=== PATIENT | female | born 1980 | race Caucasian/White ===

== ENCOUNTER → 2020-04-09 15:54 | Outpatient (BNVA) | payer OTHER, MEDICAID, SELFPAY | PROVIDERS: Visit Provider Obstetrics & Gynecology | DX: N93.9 Abnormal uterine and vaginal bleeding, unspecified (principal); R10.2 Pelvic and perineal pain; G89.29 Other chronic pain | CPT/HCPCS: 83001; 84146; 84443; 85007; 85025; 85027 ==

== ENCOUNTER → 2020-04-13 13:07 | Outpatient (BNVA) | payer OTHER, MEDICAID, SELFPAY | PROVIDERS: PCP Family Medicine; Visit Provider Obstetrics & Gynecology | DX: R10.2 Pelvic and perineal pain (principal) | CPT/HCPCS: 76830 ==

== ENCOUNTER → 2020-04-16 10:22 | Outpatient (BNVA) | payer OTHER, MEDICAID, SELFPAY | PROVIDERS: PCP Family Medicine; Visit Provider Obstetrics & Gynecology | DX: Z01.812 Encounter for preprocedural laboratory examination (principal) | CPT/HCPCS: 87635 ==

== ENCOUNTER 2020-04-20 08:11 | Outpatient (CLI) | payer OTHER, MEDICAID, SELFPAY ==
--- NOTE | 2020-04-20 08:15 | XR_ITS ---
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 Preliminary survey of the abdomen s hows a 3 mm calcification superimposing the right kidney. This apparently represents a nonobstructing renal stone. There is prompt uptake and excretion of contrast by both kidneys. The kidneys are smooth in contour a nd nondisplaced. The pyelocalyceal systems and ureters are patent. No sign of obstruction. The distal ureters are visualized and are patent into the bladder. The urinary bladder is smooth in contour. No intrinsic or extrinsic filling defects of the bladder. No sign of cystocele. Small post void residua l noted in the bladder. XR/XR IVP w KUB [id number] IMPRESSION: 1. 3 mm nonobstructing stone in the lower pole the right kidney. 2. Normal renal function with patency of the renal collecting structures and ur eters. 3. Small postvoid residual volume in the urinary bladder. Test results were discussed by phone with Dr. Moctezuma at 10:50 AM 04/20/2020
[2020-04-20 09:23] LABS: Basophils # 0.1 10^3/uL (0.0-0.1); Eosinophils # 0.3 10^3/uL (0.0-0.8); Eosinophils % 2.7 %; Hemoglobin 15.6 g/dL (11.5-15.3); Lymphocytes # 3.6 10^3/uL (0.8-4.8); Mean Corpuscular HGB Conc 32.5 g/dL (30.0-36.0); Mean Corpuscular Hemoglobin 28.8 pg (28.0-34.0); Mean Corpuscular Volume 88.7 fL (81-99); Mean Platelet Volume 10.2 fL (7.4-10.4); Monocytes # 0.9 10^3/uL (0.2-0.9); Monocytes % 6.8 %; Neutrophils # 7.48 10^3/uL (1.8-7.7); Nucleated Red Blood Cells % 0 %; Platelet Count 389 10^3/cmm (130-400); Red Blood Count 5.41 10^6/uL (4.1-5.3); Red Cell Distribution Width 13.1 % (12.1-15.1); White Blood Count 12.5 10^3/uL (4.0-10.0)
[2020-04-20 09:41] LABS: Alanine Aminotransferase 11 U/L (0-33); Albumin Level 4.5 g/dL (3.5-5.2); Alkaline Phosphatase 85 IU/L (35-105); Anion Gap 13.9 (5-19); Aspartate Amino Transferase 12 U/L (0-32); Blood Urea Nitrogen 8 mg/dL (6-20); Carbon Dioxide 21 mmol/L (22-29); Chloride 105 mmol/L (98-107); Globulin 2.6 g/dL (1.3-4.6); Glomerular Filtration Rate 110.2 mL/min (90-130); Glucose 95 mg/dL (65-115); Osmolality Calculated 280 mOsm/kg (285-295); Potassium 3.9 mmol/L (3.5-5.1); Sodium 136 mmol/L (136-145); Total Bilirubin 0.2 mg/dL (0.15-1.2); Total Protein 7.1 g/dL (6.6-8.7)
[2020-04-20] MEDS: iohexol 300 mg/mL 50 mL Btl IV ×2 (10:29)
== END 2020-04-20 08:12 | disposition home or self-care (01) ==
LOC: RAD 08:17
PROVIDERS: PCP Family Medicine; Visit Provider Obstetrics & Gynecology
DX: Q52.4 Other congenital malformations of vagina (principal); N93.9 Abnormal uterine and vaginal bleeding, unspecified; N20.0 Calculus of kidney
CPT/HCPCS: 36415; 74400; 80053; 85025

== ENCOUNTER 2020-04-21 08:06 | Day surgery (SDC) | payer OTHER, SELFPAY ==
[2020-04-20 10:41] VITALS: BMI 34.0
[2020-04-20 11:13] LABS: Add Urine Microscopic? YES; Bilirubin Urine Neg (Negative); Blood Urine 2+ (Negative); Glucose Urine UA Norm (Normal); Ketones Urine Negative (Negative); Leukocyte Esterase Urine Negative (Negative); Nitrate Urine Negative (Negative); Protein Urine Trace (Negative); Urine Appearance SL Hazy (CLEAR); Urine Color Yellow (Yellow); Urobilinogen Urine Norm (Negative)
[2020-04-20 11:38] LABS: Add Urine Culture? No; Bacteria Urine TRACE /hpf; RBC Urine RARE /hpf (0-2); Squamous Epithelial Cell Urine 15-25 /hpf (0-5)
--- NOTE | 2020-04-20 13:22 | ANES.PREANE2 ---
Pre-Anesthetic Assessment Pre-Anesthetic Assessment: Height/Weight: Height 1.55 m Weight 81.647 kg Preop Diagnosis: Vaginal Thao's duct the cyst Proposed Procedure: Operation Date: 04/21/20 09:30 Proposed Procedures p Incision And Drainage of thao cyst 88300 Q52.4(Not Applicable) - Christiano Moctezuma MD Was Beta Rach taken within 24 hours: N/A Social: Social History: Tobacco Exam: Pre-Anes Outpt Exam: alert, oriented x 3, clear to auscultation bilaterally and regular rate & rhythm Airway: Submandibular: WNL Cervical ROM: WNL MP: 2 Additional comments: Poor dentition Pulmonary: Pulmonary: COPD Metabolic: Metabolic: Morbid obesity Anesthetic Plan: ASA status: 2 Anesthesia: General Risk of > 500 ml blood loss (7ml/kg in children): No PFSH Anesthesia PFSH: Family History Father Heart disease Stroke Hypertension Grandmother Dementia maternal Stroke maternal Mother Uterine cancer Ovarian cancer Thyroid condition Hyperlipidemia Hypertension Breast cancer, Onset Age: 54 Colon cancer Denies family history of Diabetes Clotting disorder Anesthesia complication Bleeding disorder Social History (Updated 04/16/20 @ 08:56 by Lauren Dukes RN) Smoking and tobacco status: current every day smoker cigarettes Packs smoked per day: 1 Alcohol intake: current Alcohol intake frequency: holidays/special occasions only Alcohol type: hard liquor Female Reproductive History: Date of last menstrual period: 04/15/20 Data Anesthesia Other Labs: Laboratory Results - last 48 hr 04/20/20 10:55 Urine Color Yellow Urine Appearance Sl hazy Urine pH 7.0 Ur Specific [place] 1.000 L Urine Protein Trace Urine Glucose (UA) Norm Urine Ketones Negative Urine Blood 2+ H Urine Nitrate Negative Urine Bilirubin Neg Urine Urobilinogen Norm Ur Leukocyte Esterase Negative Urine RBC Rare Urine WBC None Ur Squamous Epith Cells 15-25 H Amorphous Sediment Not Reportable Urine Bacteria Trace Cardiac Studies: No Data to Display
[2020-04-20 15:19] LABS: OR HCG Qualitative Urine Negative (Negative)
[2020-04-21] VITALS (9 sets, daily range): BP systolic 80–124; BP diastolic 53–89; PULSE 63–93; RESP 15–20; TEMP 36.3–37.1; O2SAT 97–100
--- NOTE | 2020-04-21 09:01 | P.ANESUD_ITS ---
Pre-Anesthetic Update Pre-Anesthetic Assessment: Date of Surgery/Procedure: 04/21/20 Preop Krista gnosis: Vaginal Thao's duct the cyst Proposed Procedure: Operation Date: 04/21/20 09:30 Proposed Procedures p Incision And Drainage of thao cyst 37698 Q52.4(Not Applicable) - Christiano Moctezuma MD Any changes to Pre-Anesthetic Assessment?: No Last Intake: Intake Last Liquid Date 04/21/20 Last Liquid Time 06:00 Last Solid Date 04/20/20 Last Solid Time 21:00 Labs Last 48hrs: Laboratory Results - last 48 hr 04/20/20 04/20/20 10:55 10:55 Urine Color Yellow Urine Appearance Sl hazy Urine pH 7.0 Ur Specific Gravit y 1.000 L Urine Protein Trace Urine Glucose (UA) Norm Urine Ketones Negative Urine Blood 2+ H Urine Nitrate Negative Urine Bilirubin Neg Urine Urobilinogen Norm Ur Leukocyte Celi ase Negative Urine RBC Rare Urine WBC None Ur Squamous Epith Cells 15-25 H Amorphous Sediment Not Reportable Urine Bacteria Trace Urine HCG, Qual Negative Vitals: Temperature 97.3 F L 04/21/20 08:42 Pulse Rate 93 04/21/20 08:42 Pulse Rhythm 04/21/20 08:31 Pulse Strength 3+ Normal 04/21/20 08:31 Respiratory Rate 18 04/21/20 08:42 Blood Pressure 124/89 04/21/20 08:42 Blood Pressure Lin n 100 04/21/20 08:42 Pulse Oximetry 97 04/21/20 08:42 Oxygen Delivery Me thod 04/21/20 08:31 Exam: Pre-Anes Outpt Exam: alert, oriented x 3, clear to auscultation bilaterally and regular rate & rhythm Cardiac Studies: No Data to Display
[2020-04-21 09:02] LABS: OR HCG Qualitative Urine Negative (Negative)
[2020-04-21] MEDS: sodium chloride 0.9% 500 ML IV (09:05)
[2020-04-21] MEDS: scopolamine 1.5 Patch 1 PATCH TRANSDERMA (09:06)
--- NOTE | 2020-04-21 09:24 | W.PM.OPSUD ---
Surgery/Procedure H&P Update DATE OF PROCEDURE: April 21, 2020 DATE H&P PERFORMED: 04/16/20 H&P UPDATE INFORMATION: I have reviewed H&P completed within last 30 days, I have examined patient prior to procedure and No changes to prior documentation PREOP DIAGNOSIS: Vaginal Thao's duct the cyst PLANNED PROCEDURE: Operation Date: 04/21/20 09:30 Proposed Procedures p Incision And Drainage of thao cyst 37656 Q52.4(Not Applicable) - Christiano Moctezuma MD
[2020-04-21] MEDS: sodium chloride 0.9% 1,000 ML 30 ML IV (09:32)
--- NOTE | 2020-04-21 10:22 | PM.OP ---
Operative Report Date of procedure: April 21, 2020 Pre-op Diagnosis: Vaginal Thao's duct the cyst Post-op diagnosis: same Post-op Findings: Enlarged Thao's duct yst Procedure Done: Thao's duct cyst incision and drainage with marsupialization Surgeon: Christiano Moctezuma MD Anesthesia: MAC Estimated blood loss (mL): 1 IV fluids (mL): 300 Complications: None Condition: stable Disposition: PACU Procedure: After informed consent, the patient was taken to the operating room where general anesthesia was administered. The patient was placed in dorsal lithothomy position. She was examined under anesthesia and found to have a normal uterus with normal adnexa. After a bimanual examination to determine the extent of the right Thao's duct cyst. She was then prep and draped in normal sterile fashion. The labia were retracted with the Lone Start retractor and the introitus of the Vagina was exposed. An incision was made over the mucosa of the vagina at its junction with the introitus down to the wall of the gland on the right side. The wall of the gland was incised and the content of the cyst was evacuated. A culture was taken. The benites of the cyst were grasped with Allis clamps. The wall of the cyst were sutured with interrupted 3-0 Vicril to the skin of introitus laterally and to the vaginal of mucosa medially. The patient tolerated the procedure well and instruments and laps count was correct times two.
--- NOTE | 2020-04-21 12:21 | ANE.PACU2 ---
Inpatient post-anesthesia follow up: Airway intact: Yes Vital signs: Temperature 97.8 F Pulse Rate 78 Respiratory Rate 18 Blood Pressure 124/79 Pulse Oximetry 98 Oxygen Delivery Me thod Room Air Oxygen Flow Rate 6 Fraction of Inspir ed Oxygen Hydration adequate: Yes Nausea and vomiting: No Pain level: 2 Mental status: Baseline
== END 2020-04-21 11:45 | disposition home or self-care (01) ==
PROVIDERS: Anesthesiology; PCP Family Medicine; Visit Provider Obstetrics & Gynecology
PROC: (CPT 57023; principal; 2020-04-21 09:30)
DX: Q52.4 Other congenital malformations of vagina (principal); J44.9 Chronic obstructive pulmonary disease, unspecified; E66.01 Morbid (severe) obesity due to excess calories; Z68.34 Body mass index [BMI] 34.0-34.9, adult; F17.210 Nicotine dependence, cigarettes, uncomplicated
CPT/HCPCS: 57023; 12345; 36415; 81001; 81025; 84703; 86850; 86900; 87070; 87075; J0690; J1100; J2405; J2704; J3010; J7030; J7040

== ENCOUNTER → 2020-06-21 15:20 | Outpatient (BNVA) | payer OTHER, MEDICAID, SELFPAY | PROVIDERS: PCP Family Medicine; Visit Provider Obstetrics & Gynecology | DX: N93.9 Abnormal uterine and vaginal bleeding, unspecified (principal); R10.2 Pelvic and perineal pain; G89.29 Other chronic pain | CPT/HCPCS: 81025; 83001; 84146; 84443; 85025 ==

== ENCOUNTER → 2020-07-19 14:35 | Outpatient (BNVA) | payer OTHER, MEDICAID, SELFPAY | PROVIDERS: PCP Family Medicine; Visit Provider Obstetrics & Gynecology | DX: N92.6 Irregular menstruation, unspecified (principal); N91.1 Secondary amenorrhea | CPT/HCPCS: 84702 ==

== ENCOUNTER → 2020-08-09 14:25 | Outpatient (BNVA) | payer OTHER, MEDICAID, SELFPAY | PROVIDERS: PCP Family Medicine; Visit Provider Obstetrics & Gynecology | DX: N91.1 Secondary amenorrhea (principal); R10.2 Pelvic and perineal pain; G89.29 Other chronic pain; D25.1 Intramural leiomyoma of uterus | CPT/HCPCS: 83001 ==

== ENCOUNTER → 2020-09-30 14:25 | Outpatient (BNVA) | payer OTHER, MEDICAID, SELFPAY | PROVIDERS: PCP Family Medicine; Visit Provider Obstetrics & Gynecology | DX: G89.29 Other chronic pain (principal); N93.9 Abnormal uterine and vaginal bleeding, unspecified; R10.2 Pelvic and perineal pain | CPT/HCPCS: 87635 ==

== ENCOUNTER 2020-10-06 07:47 | Day surgery (SDC) | payer OTHER, MEDICAID, SELFPAY ==
[2020-10-04 10:54] VITALS: BMI 34.0
--- NOTE | 2020-10-04 12:45 | ANES.PREANE2 ---
Pre-Anesthetic Assessment Pre-Anesthetic Assessment: Height/Weight: Height 1.55 m Weight 81.647 kg Preop Diagnosis: Vaginal Thao's duct the cyst Proposed Procedure: Operation Date: 10/06/20 13:15 Proposed Procedures p Diagnostic Laparoscopy 50333 R10.2 N93.9(Not Applicable) - Christiano Moctezuma MD Was Beta Rach taken within 24 hours: N/A Was Clonidine taken within 24 hours: N/A Social: Social History: Tobacco and No alcohol Exam: Pre-Anes Outpt Exam: alert, oriented x 3 and regular rate & rhythm Airway: Submandibular: WNL Cervical ROM: WNL MP: 2 Dentition: Chipped Additional comments: poor dentition Metabolic: Metabolic: Morbid obesity Neuropsych: Comments: Chronic pelvic pain Anesthetic Plan: ASA status: 2 Anesthesia: General Risk of > 500 ml blood loss (7ml/kg in children): No PFSH Anesthesia PFSH: Medical History Aftercare following surgery of the genitourinary system Family History Father Heart disease Stroke Hypertension Grandmother Dementia maternal Stroke maternal Mother Uterine cancer Ovarian cancer Thyroid condition Hyperlipidemia Hypertension Breast cancer, Onset Age: 56 Colon cancer Denies family history of Diabetes Clotting disorder Anesthesia complication Bleeding disorder Social History Smoking and tobacco status: current every day smoker cigarettes Packs smoked per day: 0.5 Alcohol intake: current Alcohol intake frequency: holidays/special occasions only Alcohol type: hard liquor Other details last substance use: has tried to use marijuana in the past but it makes her sick Female Reproductive History: Date of last menstrual period: 04/15/20 Data Anesthesia Cardiac Studies: No Data to Display
[2020-10-06] VITALS (10 sets, daily range): BP systolic 106–118; BP diastolic 62–83; PULSE 61–81; RESP 11–18; TEMP 36.2–36.7; O2SAT 96–97
[2020-10-06] MEDS: scopolamine 1.5 Patch 1 PATCH TRANSDERMA (08:25)
[2020-10-06 08:31] LABS: OR HCG Qualitative Urine Negative (Negative)
[2020-10-06] MEDS: sodium chloride 0.9% 1,000 ML 30 ML IV (08:49)
--- NOTE | 2020-10-06 09:07 | P.ANESUD_ITS ---
Pre-Anesthetic Update Pre-Anesthetic Assessment: Date of Surgery/Procedure: 10/06/20 Preop Krista gnosis: Chronic pelvic pain, uterine fibroids, abnormal uterine bleeding Proposed Procedure: Operation Date: 10/06/20 09:20 Proposed Procedures p Diagnostic Laparoscopy 75733 R10.2 N93.9(Not Applicable) - Christiano Moctezuma MD Any changes to Pre-Anesthetic Assessment?: No Last Intake: Intake Last Liquid Date 10/05/20 Last Liquid Time 21:30 Last Solid Date 10/05/20 Last Solid Time 21:30 Labs Last 48hrs: Laboratory Results - last 48 hr 10/06/20 07:18 Urine HCG, Qual Negative Vitals: Temperature 98.1 F 10/06/20 08:03 Temperature Source Temporal Artery S can 10/06/20 08:03 Pulse Rate 81 10/06/20 08:03 Respiratory Rate 18 10/06/20 08:03 Blood Pressure 118/83 10/06/20 08:03 Blood Pressure Lin n 94 10/06/20 08:03 Pulse Oximetry 97 10/06/20 08:03 Oxygen Delivery Me thod 10/06/20 08:06 Exam: Pre-Anes Outpt Exam: alert, oriented x 3, clear to auscultation bilaterally and regular rate & rhythm Cardiac Studies: No Data to Display
[2020-10-06] MEDS: midazolam 1 mg/mL INJ 2 mL 2 MG IVP (09:16)
[2020-10-06 09:40] LABS: Basophils # 0.1 10^3/uL (0.0-0.1); Basophils % 0.8 %; Eosinophils # 0.3 10^3/uL (0.0-0.8); Lymphocytes # 3.3 10^3/uL (0.8-4.8); Lymphocytes % 25.3 %; Mean Corpuscular HGB Conc 32.7 g/dL (30.0-36.0); Mean Corpuscular Volume 88.8 fL (81-99); Mean Platelet Volume 10.4 fL (7.4-10.4); Monocytes # 1.1 10^3/uL (0.2-0.9); Neutrophils # 8.36 10^3/uL (1.8-7.7); Neutrophils % 63.3 %; Nucleated Red Blood Cells % 0 %; Platelet Count 332 10^3/cmm (130-400); Red Blood Count 5.52 10^6/uL (4.1-5.3); Red Cell Distribution Width 13.5 % (12.1-15.1); White Blood Count 13.2 10^3/uL (4.0-10.0)
--- NOTE | 2020-10-06 09:44 | W.PM.OPSUD ---
Surgery/Procedure H&P Update DATE OF PROCEDURE: October 06, 2020 DATE H&P PERFORMED: 10/04/20 H&P UPDATE INFORMATION: I have reviewed H&P completed within last 30 days, I have examined patient prior to procedure and No changes to prior documentation PREOP DIAGNOSIS: Chronic pelvic pain, uterine fibroids, abnormal uterine bleeding PLANNED PROCEDURE: Operation Date: 10/06/20 09:20 Proposed Procedures p Diagnostic Laparoscopy 25340 R10.2 N93.9(Not Applicable) - Christiano Moctezuma MD
[2020-10-06 10:00] LABS: Anion Gap 14.7 (5-19); Blood Urea Nitrogen 8 mg/dL (6-20); Calcium 8.7 mg/dL (8.5-10.5); Carbon Dioxide 23 mmol/L (22-29); Chloride 100 mmol/L (98-107); Glomerular Filtration Rate 109.6 mL/min (90-130); Glucose 90 mg/dL (65-115); Osmolality Calculated 276 mOsm/kg (285-295); Potassium 3.7 mmol/L (3.5-5.1); Sodium 134 mmol/L (136-145)
--- NOTE | 2020-10-06 10:42 | P.OP_ITS ---
Operative Report Date of procedure: October 06, 2020 Pre-op Diagnosis: Chronic pelvic pain, uterine fibroids, abnormal uterine bleeding Post-op diagnosis: same Post-op Findings: Enlarged irregular uterus. Mild endometriosis Left follicular cyst Procedure Done: Diagnostic laparoscopy Specimens removed/disposition: None Pathology: none sent Surgeon: Christiano Moctezmua MD Anesthesia: General Estimated blood loss (mL): 5 IV fluids (mL): 800 Urine output (mL): 50 Complications: None Condition: stable Disposition: PACU Brief History: Mrs. Deutsch 40-year-old female with a history of chronic pelvic pain abnormal uterine bleeding and uterine fibroids Procedure: After informed consent, the patient was taken to the operating room where general anesthesia was administered. The patient was examined under anesthesia and found to have a normal uterus with normal adnexa. She was placed in the dorsal lithotomy position and prepped and draped in sterile fashion. Pre- Procedure Time-Out verifying the correct patient identity, correct procedure verified with consent, correct site and side, correct patient position, availability of correct implants and any special equipment or requirements was performed and acknowledge by the OR team. A weighted speculum was placed in the vagina, and the anterior lip of cervix was grasped with the single toothed tenaculum. A uterine manipulator was advanced into the endocervical. Tenaculum was removed after uterine manipulator was secured. The speculum was removed from the vagina. An intraumbilical incision was made with a scalpel. While tenting up on the abdomen, a Verres needle with sleeve was admitted into the intra-abdominal cavity. A saline drop test was performed and noted to be within normal limits. Pneumoperitoneum was attained with 4 liters of carbon dioxide. The Verres needle was removed. A 5 mm trocar and sleeve were admitted into the abdomen and laparoscopic confirmation of location was achieved, A second incision was made 3 cm above the symphysis pubis, and a 5 mm trocar and sleeve were admitted into the abdomen under direct, laparoscopic visualization without complication. A 5 mm blunt probe was advanced through the second trocar sleeve, and light manipulation of ovaries and uterus to assess the posterior aspects was performed. A survey revealed normal abdominal anatomy but pelvic survey shows an enlarged irregular uterus, left and right adnexa showing a status post partial salpingectomy. A left ovarian follicle cyst. Endometriosis lesions noted post deviously left pelvic wall over the left ureter trajectory. Carbon dioxide was allowed to escape from the abdomen. The instruments were removed, and skin cover with a bandage. The instruments were removed from the vagina, and excellent hemostasis was noted. The patient tolerated the procedure well, and sponge, lap and needle count were correct times two. The patient taken to the recovery room in good condition.
[2020-10-06] MEDS: HYDROcodone-acetaminophen 5-325 mg Tablet 1 TAB PO (11:41)
--- NOTE | 2020-10-06 17:12 | ANE.PACU2 ---
Inpatient post-anesthesia follow up: Airway intact: Yes Vital signs: Temperature 97.8 F Pulse Rate 70 Respiratory Rate 18 Blood Pressure 108/74 Pulse Oximetry 97 Oxygen Delivery Me thod Room Air Oxygen Flow Rate Fraction of Inspir ed Oxygen Hydration adequate: Yes Nausea and vomiting: No Pain level: 1 Mental status: Baseline
== END 2020-10-06 12:21 | disposition home or self-care (01) ==
PROVIDERS: PCP Family Medicine; Visit Provider Obstetrics & Gynecology
PROC: (CPT 49320; principal; 2020-10-06 09:10)
DX: R10.2 Pelvic and perineal pain (principal); G89.29 Other chronic pain; D25.9 Leiomyoma of uterus, unspecified; N93.9 Abnormal uterine and vaginal bleeding, unspecified; Z98.890 Other specified postprocedural states; N83.202 Unspecified ovarian cyst, left side; N80.3 Endometriosis of pelvic peritoneum; E66.01 Morbid (severe) obesity due to excess calories; Z68.34 Body mass index [BMI] 34.0-34.9, adult; Z82.49 Family history of ischemic heart disease and other diseases of the circulatory system; F17.210 Nicotine dependence, cigarettes, uncomplicated
CPT/HCPCS: 49320; 36415; 80048; 81025; 84703; 85025; 86850; 86900; J0690; J2250; J2550; J2704; J2710; J3010; J3490; J7030

== ENCOUNTER → 2020-10-25 12:06 | Outpatient (BNVA) | payer OTHER, MEDICAID, SELFPAY | PROVIDERS: PCP Family Medicine; Visit Provider Obstetrics & Gynecology | DX: R35.0 Frequency of micturition (principal); N80.9 Endometriosis, unspecified; R10.2 Pelvic and perineal pain; G89.18 Other acute postprocedural pain; D25.1 Intramural leiomyoma of uterus; G89.29 Other chronic pain | CPT/HCPCS: 81000; 87086 ==

== ENCOUNTER → 2020-11-12 14:39 | Outpatient (BNVA) | payer OTHER, MEDICAID, SELFPAY | PROVIDERS: PCP Family Medicine; Visit Provider Obstetrics & Gynecology | DX: Z20.822 Contact with and (suspected) exposure to COVID-19 (principal); D25.1 Intramural leiomyoma of uterus | CPT/HCPCS: 87635 ==

== ENCOUNTER 2020-11-17 09:46 | Observation (INO) | payer OTHER, MEDICAID, SELFPAY ==
[2020-11-15 10:16] VITALS: BMI 34.0
--- NOTE | 2020-11-15 10:49 | ANES.PREANE2 ---
Pre-Anesthetic Assessment Pre-Anesthetic Assessment: Height/Weight: Height 1.55 m Weight 81.647 kg Preop Diagnosis: Chronic pelvic pain, uterine fibroids, abnormal uterine bleeding Proposed Procedure: Operation Date: 11/17/20 08:05 Proposed Procedures p Total Vaginal Hysterectomy 45973 D25.9 N80.9 R10.2 N93.9(Not Applicable) - Christiano Moctezuma MD Was Beta Rach taken within 24 hours: N/A Was Clonidine taken within 24 hours: N/A Social: Social History: No alcohol and No tobacco Exam: Pre-Anes Outpt Exam: alert, oriented x 3, clear to auscultation bilaterally and regular rate & rhythm Airway: Submandibular: WNL Cervical ROM: WNL MP: 2 Dentition: Chipped Pulmonary: Pulmonary: COPD CV/HEM: CV/HEM: Anemia Metabolic: Metabolic: Morbid obesity Anesthetic Plan: ASA status: 2 Anesthesia: General Risk of > 500 ml blood loss (7ml/kg in children): No PFSH Anesthesia PFSH: Medical History Aftercare following surgery of the genitourinary system Family History Father Heart disease Stroke Hypertension Grandmother Dementia maternal Stroke maternal Mother Uterine cancer Ovarian cancer Thyroid condition Hyperlipidemia Hypertension Breast cancer, Onset Age: 56 Colon cancer Denies family history of Diabetes Clotting disorder Anesthesia complication Bleeding disorder Social History (Updated 10/25/20 @ 11:11 by Jenae Crenshaw) Smoking and tobacco status: current every day smoker cigarettes Packs smoked per day: 0.5 Alcohol intake: current Alcohol intake frequency: holidays/special occasions only Alcohol type: hard liquor Other details last substance use: has tried to use marijuana in the past but it makes her sick Female Reproductive History: Date of last menstrual period: 04/15/20 Data Anesthesia CBC & Chem 7: 11/15/20 10:30 11/15/20 10:30 Cardiac Studies: No Data to Display
[2020-11-15 11:00] LABS: Basophils # 0.1 10^3/uL (0.0-0.1); Basophils % 0.8 %; Eosinophils # 0.3 10^3/uL (0.0-0.8); Eosinophils % 2.1 %; Hematocrit 47.7 % (37.0-47.0); Hemoglobin 15.5 g/dL (11.5-15.3); Lymphocytes # 3.8 10^3/uL (0.8-4.8); Lymphocytes % 29.8 %; Mean Corpuscular HGB Conc 32.5 g/dL (30.0-36.0); Mean Corpuscular Hemoglobin 28.9 pg (28.0-34.0); Mean Platelet Volume 10.7 fL (7.4-10.4); Monocytes # 0.9 10^3/uL (0.2-0.9); Monocytes % 7.3 %; Neutrophils # 7.52 10^3/uL (1.8-7.7); Neutrophils % 59.3 %; Nucleated Red Blood Cells % 0 %; Platelet Count 368 10^3/cmm (130-400); Red Blood Count 5.36 10^6/uL (4.1-5.3); Red Cell Distribution Width 13.8 % (12.1-15.1); White Blood Count 12.7 10^3/uL (4.0-10.0)
[2020-11-15 11:18] LABS: Alanine Aminotransferase 11 U/L (0-33); Albumin Level 4.2 g/dL (3.5-5.2); Alkaline Phosphatase 82 IU/L (35-105); Anion Gap 15.1 (5-19); Aspartate Amino Transferase 15 U/L (0-32); Blood Urea Nitrogen 5 mg/dL (6-20); Calcium 8.3 mg/dL (8.5-10.5); Carbon Dioxide 22 mmol/L (22-29); Chloride 103 mmol/L (98-107); Globulin 3.1 g/dL (1.3-4.6); Glomerular Filtration Rate 109.6 mL/min (90-130); Glucose 85 mg/dL (65-115); Osmolality Calculated 279 mOsm/kg (285-295); Potassium 4.1 mmol/L (3.5-5.1); Sodium 136 mmol/L (136-145); Total Bilirubin 0.2 mg/dL (0.15-1.2); Total Protein 7.3 g/dL (6.6-8.7)
[2020-11-15 13:14] LABS: Urine Appearance SL Hazy (CLEAR); Urine Color Yellow (Yellow)
[2020-11-15 13:15] LABS: Add Urine Microscopic? YES; Bilirubin Urine Neg (Negative); Blood Urine Neg (Negative); Glucose Urine UA Norm (Normal); Ketones Urine Negative (Negative); Leukocyte Esterase Urine Trace (Negative); Nitrate Urine Negative (Negative); Protein Urine Neg (Negative); Specific Gravity, Urine 1.005 (1.005-1.030); Urobilinogen Urine Norm (Negative); pH Urine 8 (5-7)
[2020-11-15 13:33] LABS: Add Urine Culture? No; Bacteria Urine TRACE /hpf; Squamous Epithelial Cell Urine 0-4 /hpf (0-5); WBC Urine 0-4 /hpf (0-5)
[2020-11-17] VITALS (23 sets, daily range): BP systolic 97–140; BP diastolic 56–84; PULSE 54–92; RESP 16–20; TEMP 36.5–36.9; O2SAT 95–100; BMI 34.0
[2020-11-17] MEDS: scopolamine 1.5 Patch 1 PATCH TRANSDERMA (07:36)
[2020-11-17] MEDS: sodium chloride 0.9% 500 ML IV (07:36)
[2020-11-17] MEDS: sodium chloride 0.9% 1,000 ML 30 ML IV (07:36)
--- NOTE | 2020-11-17 08:12 | W.PM.OPSUD ---
Surgery/Procedure H&P Update DATE OF PROCEDURE: November 17, 2020 DATE H&P PERFORMED: 10/04/20 H&P UPDATE INFORMATION: I have reviewed H&P completed within last 30 days, I have examined patient prior to procedure and No changes to prior documentation PREOP DIAGNOSIS: Chronic pelvic pain, uterine fibroids, abnormal uterine bleeding PLANNED PROCEDURE: Operation Date: 11/17/20 08:20 Proposed Procedures p Total Vaginal Hysterectomy 76296 D25.9 N80.9 R10.2 N93.9(Not Applicable) - Christiano Moctezuma MD
[2020-11-17 08:30] LABS: OR HCG Qualitative Urine Negative (Negative)
[2020-11-17] MEDS: ceFOXitin 2,000 MG in sodium chloride 0.9% (plus) 50 ML 100 MG IV (08:32)
--- NOTE | 2020-11-17 09:17 | P.ANESUD_ITS ---
Pre-Anesthetic Update Pre-Anesthetic Assessment: Date of Surgery/Procedure: 11/17/20 Preop Krista gnosis: Chronic pelvic pain, uterine fibroids, abnormal uterine bleeding Proposed Procedure: Operation Date: 11/17/20 08:20 Proposed Procedures p Total Vaginal Hysterectomy 36530 D25.9 N80.9 R10.2 N93.9(Not Applicable) - Christiano Moctezuma MD Any changes to Pre-Anesthetic Assessment?: No Last Intake: Intake Last Liquid Date 11/16/20 Last Liquid Time 23:00 Last Solid Date 11/16/20 Last Solid Time 20:00 Labs Last 48hrs: Laboratory Results - last 48 hr 11/15/20 11/15/20 11/15/20 10:30 10:30 10:30 WBC 12.7 H RBC 5.36 H Hgb 15.5 H Hct 47.7 H MCV 89.0 MCH 28.9 MCHC 32.5 RDW 13.8 Plt Count 368 MPV 10.7 H Neut % (Auto) 59.3 Lymph % (Auto) 29.8 [place] % (Auto) 7.3 Eos % (Auto) 2.1 Baso % (Auto) 0.8 Neut # (Auto) 7.52 Lymph # (Auto) 3.8 [place] # (Auto) 0.9 Eos # (Auto) 0.3 Baso # (Auto) 0.1 Nucleated RBC % (a uto) 0 Nucleated RBCs # 0.0 Sodium 136 Potassium 4.1 Chloride 103 Carbon Dioxide 22 Anion Gap 15.1 BUN 5 L Creatinine 0.6 GFR Calculation 109.6 Glucose 85 Calculated Osmolal ity 279 L Calcium 8.3 L Total Bilirubin 0.2 AST 15 ALT 11 Alkaline Phosphata se 82 Total Protein 7.3 Albumin 4.2 Globulin 3.1 Urine Color Yellow Urine Appearance Sl hazy Urine pH 8 H Ur Specific Gravit y 1.005 Urine Protein Neg Urine Glucose (UA) Norm Urine Ketones Negative Urine Blood Neg Urine Nitrate Negative Urine Bilirubin Neg Urine Urobilinogen Norm Ur Leukocyte Celi ase Trace H Urine RBC None Urine WBC 0-4 H Ur Squamous Epith Cells 0-4 H Amorphous Sediment Not Reportable Urine Bacteria Trace Urine HCG, Qual Blood Type Rho(D) Type Antibody Screen 11/15/20 11/17/20 10:30 08:29 WBC RBC Hgb Hct MCV MCH MCHC RDW Plt Count MPV Neut % (Auto) Lymph % (Auto) [place] % (Auto) Eos % (Auto) Baso % (Auto) Neut # (Auto) Lymph # (Auto) [place] # (Auto) Eos # (Auto) Baso # (Auto) Nucleated RBC % (a uto) Nucleated RBCs # Sodium Potassium Chloride Carbon Dioxide Anion Gap BUN Creatinine GFR Calculation Glucose Calculated Osmolal ity Calcium Total Bilirubin AST ALT Alkaline Phosphata se Total Protein Albumin Globulin Urine Color Urine Appearance Urine pH Ur Specific Gravit y Urine Protein Urine Glucose (UA) Urine Ketones Urine Blood Urine Nitrate Urine Bilirubin Urine Urobilinogen Ur Leukocyte Celi ase Urine RBC Urine WBC Ur Squamous Epith Cells Amorphous Sediment Urine Bacteria Urine HCG, Qual Negative Blood Type A Positive Rho(D) Type Positive Antibody Screen Negative Vitals: Temperature 97.9 F 11/17/20 07:14 Temperature Source Temporal Artery S can 11/17/20 07:14 Pulse Rate 92 11/17/20 07:14 Respiratory Rate 18 11/17/20 07:14 Blood Pressure 140/81 11/17/20 07:14 Blood Pressure Lin n 100 11/17/20 07:14 Pulse Oximetry 96 11/17/20 07:14 Oxygen Delivery Me thod 11/17/20 07:14 Exam: Pre-Anes Outpt Exam: alert, oriented x 3, clear to auscultation bilaterally and regular rate & rhythm Cardiac Studies: No Data to Display
--- NOTE | 2020-11-17 09:48 | P.OP_ITS ---
Operative Report Date of procedure: November 17, 2020 Pre-op Diagnosis: Chronic pelvic pain, uterine fibroids, abnormal uterine bleeding Post-op diagnosis: same Procedure Done: Total vaginal hysterectomy Specimens removed/disposition: Uterus Pathology: Uterus Surgeon: Christiano Moctezuma MD Anesthesia: General Estimated blood loss (mL): 50 IV fluids (mL): 500 Urine output (mL): 200 Condition: stable Disposition: PACU Procedure: After informed consent and risks, benefits, indications and alternatives reviewed with the patient was taken to the operating room. The patient was placed in dorsal lithotomy position prepped, and draped in the usual sterile fashion. The pre-procedure timeout verifying the correct patient, procedure, site and side, could not requirements was performed and acknowledge by the OR team. A Maguire catheter was placed. A Bookwalter vaginal retractor was placed into the vagina in usual manner visualize the cervix. Cervix was grasped with a single tooth tenaculum and circumferentially infiltrated with 1% Xylocaine with epinephrine. Then cervix was circumferentially incised with bovie and the bladder was dissected off the pubovesical cervical fascia anteriorly with a sponge stick and Metzenbaum scissors. The anterior peritoneal reflection was identified and the anterior cul-de-sac was entered sharply with Metzenbaum scissors. The same procedure was performed posteriorly and a posterior colpotomy was made through the posterior cul-de-sac space without difficulty and the posterior blade of the Bookwalter vaginal retractor was advanced posteriorly into the cul-de-sac. At this time, the left and right uterosacral ligaments were isolated and ligated with 0 Vicryl. The Enseal device was placed over the uterosacral ligaments on either side and was then used in a serial fashion up through the cardinal ligaments bilaterally cross-clamped, cut, and sealed with the Enseal device. Finally, the uterine arteries were cross-clamped, cut, sealed and ligated with the Enseal device. Hemostasis was assured. The broad ligaments were then serially clamped, sealed and cut with the Enseal device on both sides. Excellent hemostasis was visualized. Both cornua were clamped, sealed and cut with the Enseal device. Then the pedicles were then suture ligated with excellent hemostasis. The uterus was excised and submitted for pathologic evaluation. No other abnormalities were noted in the pelvic cavity. The peritoneum was then closed in a pursestring fashion with 0 Vicryl suture. The patient was given indigo carmine IV. the vaginal cuff angles were closed with [id number] #0 Vicryl suture on both sides and transfixed with the ipsilateral cardinal and uterosac ral ligaments. The remainder of the vaginal cuff was closed with #0 Vicryl in a running locked fashion. At this time, instruments were removed from the vagina at hemostasis assured. The Maguire catheter noted to be yielding clear blue urine. The patient was taken out of dorsal lithotomy position and awakened from the general anesthesia. The patient tolerated the procedure well and was taken to the PACU recovery room in a stable condition. Sponge, lap, needle and instruments counts were correct x3.
[2020-11-17] MEDS: fentaNYL 50 mcg/mL INJ 2mL IVP ×2 (09:57→10:05)
[2020-11-17] MEDS: HYDROcodone-acetaminophen 5-325 mg Tablet PO ×3 (11:01→23:09)
[2020-11-17] MEDS: ketorolac 30 mg/mL INJ IVP ×3 (11:01→23:09)
[2020-11-17] MEDS: TRAMadol 50 mg Tablet PO ×2 (14:58→21:24)
[2020-11-17] MEDS: nicotine 21 mg Patch 1 PATCH TRANSDERMA (14:59)
--- NOTE | 2020-11-17 16:41 | PC.NURSE ---
Patient ambulated 1 lap up and back to room. Patient tolerated without any weakness, dizziness or lightheadedness.
[2020-11-17] MEDS: docusate sodium 100 mg Capsule PO (17:24)
--- NOTE | 2020-11-17 17:48 | ANE.PACU2 ---
Inpatient post-anesthesia follow up: Airway intact: Yes Vital signs: Temperature 98.4 F Pulse Rate 67 Respiratory Rate 17 Blood Pressure 105/67 Pulse Oximetry 96 Oxygen Delivery Me thod Room Air Oxygen Flow Rate 8 Fraction of Inspir ed Oxygen Hydration adequate: Yes Nausea and vomiting: No Pain level: 2 Mental status: Baseline
[2020-11-17] MEDS: dextrose 5%-lactated ringers 1,000 ML 125 ML IV (18:20)
[2020-11-17] MEDS: morphine 4 mg/mL SDV 1 mL 1 MG IVP (20:57)
[2020-11-17] MEDS: LORazepam 2 mg/mL INJ 1 mL 1 MG IVP (20:57)
[2020-11-18] MEDS: dextrose 5%-lactated ringers 1,000 ML 125 ML IV (01:44)
[2020-11-18 04:03] VITALS: BP 109/55; PULSE 60; RESP 17; TEMP 36.7; O2SAT 99
[2020-11-18] MEDS: TRAMadol 50 mg Tablet PO ×2 (04:03→10:03)
[2020-11-18] MEDS: HYDROcodone-acetaminophen 5-325 mg Tablet PO (05:10)
[2020-11-18] MEDS: ketorolac 30 mg/mL INJ IVP (05:10)
[2020-11-18 05:49] LABS: Hematocrit 39.1 % (37.0-47.0); Hemoglobin 12.7 g/dL (11.5-15.3); Mean Corpuscular HGB Conc 32.5 g/dL (30.0-36.0); Mean Corpuscular Hemoglobin 29.2 pg (28.0-34.0); Mean Corpuscular Volume 89.9 fl (81-99); Mean Platelet Volume 10.7 fL (7.4-10.4); Platelet Count 295 10^3/cmm (130-400); Red Blood Count 4.35 10^6/uL (4.1-5.3); Red Cell Distribution Width 13.8 % (12.1-15.1); White Blood Count 21.6 10^3/uL (4.0-10.0)
--- NOTE | 2020-11-18 09:02 | P.DS_ITS ---
Discharge Providers PUBLIC RELATIONS SALES MARKETING Date of Admission: 11/17/20 09:46 Date of Discharge: 11/18/20 Attending Provider at Admission: Christiano Moctezuma MD Attending Provider at Discharge: Christiano Moctezuma MD Primary Care Provider: Milana Nogueira DO Reason for Visit Reason for Visit: total vaginal hysterectomy Hospital Course Hospital Course Mrs. Deutsch 40-year-old female with a history of chronic pelvic pain, uterine fibroid and endometriosis admitted for planned total vaginal hysterectomy. The procedure was performed without complication. Overnight observation was significant for postopo pain due to the patient high tolerance of narcotics, but the pain was brought under control. She is afebrile and hemodynamically stable. Tolerating diet well. Ambulating without difficulty. Physical Exam Narrative: EXAM NARRATIVE: GA: Alert and oriented ?3. HEENT: WNL. Heart: Regular rate and rhythm. Lungs: Clear to auscultation bilaterally. Abdomen: Bowel sounds present, nontender. DIRECTOR OF RESEARCH: spotting bleeding. Extremities: No edema, no cyanosis, no calves pain. Urinary Catheter Management^: Maguire: Cath Placed During This Visit: yes, but has since been removed by the nurse Reason for Continuing Indwelling Catheter: Decision to DC Catheter Urinary Catheter Date of Insertion: 11/17/20 Urinary Catheter Time of Insertion: 08:51 Date Urinary Catheter Removed: 11/18/20 Time Urinary Catheter Discontinued: 05:15 Discharge Data Data Completed and Pending: Pending at discharge Category Date Time Status Pathology: Surgic al [PTH] Routine Pth 11/17/20 09:53 Received Labs from last 24 hours 11/18/20 05:30 WBC 21.6 H RBC 4.35 Hgb 12.7 Hct 39.1 MCV 89.9 MCH 29.2 MCHC 32.5 RDW 13.8 Plt Count 295 MPV 10.7 H Vitals: Last Vital Signs Temp 98.0 F 11/18/20 04:03 Pulse 60 11/18/20 04:03 Resp 17 11/18/20 04:03 BP 109/55 11/18/20 04:03 Pulse Ox 99 11/18/20 04:03 Discharge Plan Discharge Patient Disposition: Home Condition: Stable Prescriptions: New hydrocodone-acetaminophen 5-325 mg tablet 1 tab PO Q4H PRN (Reason: pain) Qty: 30 RF: 0 acetaminophen 325 mg capsule 325 mg PO Q4H PRN (Reason: fever or pain) Qty: 60 RF: 0 Continued tramadol 50 mg tablet 50 mg PO Q8H PRN (Reason: pain) Qty: 20 RF: 0 ibuprofen 800 mg tablet 800 mg PO TID PRN (Reason: pain) Qty: 60 RF: 0 Discharge Orders: Discharge Order (Routine); Ordered 11/18/20 Ordered By: Christiano Moctezuma Referrals: Christiano Moctezuma MD [Physician] - 2 weeks Discharge Diet: Usual diet Discharge Activity: Increase activity as tolerated Patient Instructions: Opioid Safety Activity Restrictions/Additional Instructions: 1. Please call [facility] on next working day to make your post-operative appointment in 2 weeks. 2. Please stay home until you come back to the clinic on first post-operative check up. 3. Please follow instructions on your medications CAREFULLY. 4. If you have abdominal incision, do not cover it unless dressing is necessary because of drainage. OK to shower, but avoid bath. Leave steri-strips until they fall off. If they are still on one week after surgery, you may remove them. 5. If you had vaginal surgery or vaginal repair, Dr. Moctezuma may instruct you to take SITZ bath. 6. Yellow, blood tinged odorous vaginal discharge is usually normal after hysterectomy or vaginal surgeries. 7. No sexual intercourse, tampons, or douches until you are completely released from the post-operative care. 8. Avoid constipation by eating right and maybe using some Metamucil or Milk of Magnesia. 9. All prescription refills are given during the working hours. Please do no wait till it runs out. Call the clinic at [phone] before your medication runs out. The clinic will get in touch with your doctor to prescribe medications if necessary. 10. Please remain within 40 mile radius from our hospital because emergencies do happen now and then during the post-operative period. 11. If you have stairs at home, take one step at a time slowly and minimize the number of trips. It helps to stay in one floor for the next few days. No lifting except what you can lift by one hand until you are released from the post-operative care. 12. Driving is discouraged until you are well healed. It may be 3-4 weeks before you feel strong enough to drive. You should be able to turn and look through the rear window without pain and you should be able to push the brake pedal very hard without pain before you drive. No fast rules, but SAFETY should be your primary concern. DO NOT drive if you are on sedating medications such as narcotics. 13. Call the clinic (during working hours) to make urgent appointment or go to the Emergency room, if any of the following occurs: i. Vaginal bleeding becomes heavy, more than a period. ii. Incision becomes red and sore, or drains pus. iii. Your temperature is over 100.4 or you have chill. iv. IV site becomes red and swollen (a little ``knot?? is usually OK) v. Persistent nausea and vomiting vi. Persistent constipation or diarrhea vii. Rash or allergic reaction to medications. Discharge Attestations PUBLIC RELATIONS SALES MARKETING Time Spent in Discharge Care*: greater than 30 min Coding Level of Care Code Acute Coal Crusher Operator for Jeremiah Zhu
[2020-11-18] MEDS: ibuprofen 800 mg tablet PO (10:03)
[2020-11-18] MEDS: docusate sodium 100 mg Capsule PO (10:03)
[2020-11-18 10:45] VITALS: BP 113/59; PULSE 62; RESP 18; TEMP 36.7; O2SAT 99
--- NOTE | 2020-11-19 11:37 | PC.NURSE ---
1130 THIS ACADEMIC SUCCESS COORDINATOR CALLED AND TALKED WITH PATIENT AT LENGTH ABOUT HER CARE AND CONCERNS, TOLD HER THAT WE DID MEDICATE HER MUCH WE COULD AND ACTUALLY MORE OFTEN THAN MOST. TOLD HER THAT WE MEDICATED HER WITHIN 20 MINUTES OF BEING ON THE FLOOR FROM OR AND REMINDED HER THAT WE HAD A DELAY DUE TO TRANFERRING ORDERS FROM OR TO OB. ALSO INFORMED HER THAT WE GAVE HER MORE TO DRINK THAN HER ORDERS CALLED FOR AND SHE SAID THAT HER DOCTOR TOLD HER THAT SHE COULD EAT AND I TOLD HER THAT HER ORDER HAD NOT CHANGED. TOLD HER WELL THAT WHEN DR. AQUINO CAME OVER AND SAW HER AROUND 3PM THAT I ENTERED ROOM HE WAS LEAVING HER ROOM AND GAVE HER THE TRAMADOL. SHE DOES NOT REMEMBER ME MEDICATED HER WITH THOSE THINGS, UNTIL I TOLD HER SPECIFIC TIMES AND MEDICATIONS. PT WAS MEDICATED AT 1101 WITH TORADOL AND HYRDOCODONES (2) AND THEN AT 1458 WAS GIVEN TRAMADOL AND AT 1722 WAS GIVEN 2 MORE HYDROS. ALSO PATIENT WAS GOTTEN UP TO CHAIR AROUND 3 SOONER THAN ORDERS CALLED FOR GETTING UP AND THEN ANOTHER STAFF MEMBER WALKED HER FOR ME AND TOLD SHE TOLD THAT STAFF MEMBER THAT SHE HAD BEEN ASKING TO GET UP FOR HOURS AND SHE HAD NOT ASK THIS ACADEMIC SUCCESS COORDINATOR EVEN ONCE. I WAS TOLD TO THAT SHE HAD C/O ABOUT HER HAND TO EVERY NURSE WHO HAD TAKEN CARE OF HER SHE NEVER SAID ANYTHING TO ME ABOUT IT. WHEN I ASKED HER ABOUT THIS SHE SAID THAT IT WAS MOSTLY THE OR STAFF. THIS ACADEMIC SUCCESS COORDINATOR APOLIZED TO HER AND TOLD THAT I WAS SORRY THAT SHE FELT LIKE I DID NOT TAKE CARE OF HER WELL AND SHE SAID NO SHE WAS JUST IN PAIN AND HUNGRY AND NEEDED TO SMOKE. ASKED HER IF THERE WAS ANYTHING THAT I DO FOR HER AND SHE SAID NO, WE TALKED ABOUT PAIN CONTROL AND SITZ BATHS BUT TOLD HER NOT TO SAT IN BATHTUB UNTIL HER WAS THERE TO HELP HER. SHE HAD C/O THAT HER VAGINAL AREA WAS HURTING AND SORE. EXPLAINED TO HER THE POSITION THAT SHE WAS IN DURING SURGERY AND THAT THEY PROBABLY USED A WEIGHTED SPECULUM AND THAT COULD MAKE HER SORE TO. THANKED HER FOR LETTING US TAKE CARE OF HER AND CALL WAS ENDED.
== END 2020-11-18 10:46 | disposition home or self-care (01) ==
LOC: OBGYN 09:48
PROVIDERS: Anesthesiology; Admitting Provider Obstetrics & Gynecology; PCP Family Medicine; Visit Provider Obstetrics & Gynecology
PROC: (CPT 58260; principal; 2020-11-17 08:20)
DX: R10.2 Pelvic and perineal pain (principal); G89.29 Other chronic pain; D25.9 Leiomyoma of uterus, unspecified; N93.9 Abnormal uterine and vaginal bleeding, unspecified; J44.9 Chronic obstructive pulmonary disease, unspecified; E66.01 Morbid (severe) obesity due to excess calories; Z68.34 Body mass index [BMI] 34.0-34.9, adult; F17.210 Nicotine dependence, cigarettes, uncomplicated
CPT/HCPCS: 58260; 80053; 81001; 84703; 85025; 85027; 86850; 86900; 88307; G0378; J0694; J1100; J1885; J2060; J2270; J2405; J2704; J2710; J3010; J3490; J7030; J7040

== ENCOUNTER 2020-12-25 03:02 | Emergency (ER) | payer OTHER, MEDICAID, SELFPAY ==
[2020-12-25 03:06] VITALS: BP 123/77; PULSE 97; RESP 24; TEMP 36.3; O2SAT 96; BMI 34.2
--- NOTE | 2020-12-25 04:07 | XRR_ITS ---
PROCEDURE INFORMATION: Exam: XR Abdomen Exam date and time: 12/25/2020 4:07 AM Age: 40 years old Clinical indication: Abdominal pain; Generalized; Additional info: Constipation TECHNIQUE: Imaging protocol: XR of the abdomen. Views: Frontal supine view of the abdomen. 1 View. COMPARISON: CR XR IVP w KUB [id number] 04/20/2020 8:36 AM FINDINGS: Gastrointestinal tract: Moderate stool is seen within the descending colon. Bones/joints: Unremarkable. XR/XR KUB portable [id number] IMPRESSION: Moderate stool present within the descending colon.
[2020-12-25] MEDS: sodium chloride 0.9% 1,000 ML 999 ML IV (04:28)
[2020-12-25] MEDS: metoclopramide 5 mg/mL SDV 2 mL 10 MG IVP (04:29)
[2020-12-25] MEDS: HYDROmorphone 1 mg/mL INJ 1 mL IVP (04:29)
[2020-12-25 04:43] LABS: Basophils # 0.1 10^3/uL (0.0-0.1); Basophils % 0.5 %; Eosinophils # 0.3 10^3/uL (0.0-0.8); Eosinophils % 1.4 %; Hematocrit 47.7 % (37.0-47.0); Hemoglobin 15.6 g/dL (11.5-15.3); Lymphocytes # 2.9 10^3/uL (0.8-4.8); Lymphocytes % 14.1 %; Mean Corpuscular HGB Conc 32.7 g/dL (30.0-36.0); Mean Corpuscular Hemoglobin 29.6 pg (28.0-34.0); Mean Corpuscular Volume 90.5 fl (81-99); Mean Platelet Volume 10.4 fL (7.4-10.4); Monocytes # 1.3 10^3/uL (0.2-0.9); Monocytes % 6.2 %; Neutrophils # 15.59 10^3/uL (1.8-7.7); Neutrophils % 77.3 %; Nucleated Red Blood Cells % 0 %; Platelet Count 352 10^3/cmm (130-400); Red Blood Count 5.27 10^6/uL (4.1-5.3); White Blood Count 20.2 10^3/uL (4.0-10.0)
[2020-12-25 04:59] LABS: Alanine Aminotransferase 16 U/L (0-33); Albumin Level 4.2 g/dL (3.5-5.2); Alkaline Phosphatase 77 IU/L (35-105); Anion Gap 17.9 (5-19); Aspartate Amino Transferase 16 U/L (0-32); Blood Urea Nitrogen 9 mg/dL (6-20); C Reactive Protein 6.8 mg/L (0.0-4.9); Calcium 9.5 mg/dL (8.5-10.5); Carbon Dioxide 19 mmol/L (22-29); Chloride 104 mmol/L (98-107); Globulin 3.3 g/dL (1.3-4.6); Glomerular Filtration Rate 109.6 mL/min (90-130); Glucose 99 mg/dL (65-115); Lipase 18 U/L (13-60); Osmolality Calculated 283 mOsm/kg (285-295); Potassium 3.9 mmol/L (3.5-5.1); Sodium 137 mmol/L (136-145); Total Bilirubin 0.2 mg/dL (0.15-1.2); Total Protein 7.5 g/dL (6.6-8.7)
--- NOTE | 2020-12-25 05:03 | CTR_ITS ---
PROCEDURE INFORMATION: Exam: CT Abdomen And Pelvis With Contrast Exam date and time: 12/25/2020 5:03 AM Age: 40 years old Clinical indication: Abdominal pain; Acute; Prior surgery; Surgery date: 6+ months; Surgery type: Gb/hyst; Additional info: Abd pain leukocytosis TECHNIQUE: Imaging protocol: Computed tomography of the abdomen and pelvis with contrast. Radiation optimization: All CT scans at this facility use at least one of these dose optimization techniques: automated exposure control; mA and/or kV adjustment per patient size (includes targeted exams where dose is matched to clinical indication); or iterative reconstruction. Contrast material: OMNI 300; Contrast volume: 95 ml; Contrast route: INTRAVENOUS (IV); COMPARISON: MRI Pelvis w/wo [id number] 08/01/2018 10:59 AM RADIATION DOSE METRICS: Total DLP (mGy-cm): 1586.21 FINDINGS: Mediastinal space: There is a small hiatal hernia present. Liver: Normal. No mass. Gallbladder and bile ducts: Status post cholecystectomy. Pancreas: Normal. No ductal dilation. Spleen: Normal. No splenomegaly. Adrenal glands: Normal. No mass. Kidneys and ureters: An 8.7 mm hypoattenuation cystic mass seen in the upper pole of the right kidney. Stomach and bowel: Moderate stool is present within the rectal vault. Appendix: The appendix is visualized and is normal in configuration. Intraperitoneal space: Unremarkable. No free air. No significant fluid collection. Vasculature: Unremarkable. No abdominal aortic aneurysm. Lymph nodes: Unremarkable. No enlarged lymph nodes. Urinary bladder: Unremarkable as visualized. Reproductive: There is a 3.4 x 2.3 x 2.9 cm hypoattenuation cystic mass seen associated with the left ovary compatible with a benign or functional ovarian cyst. Status post hysterectomy. Bones/joints: Unremarkable. No acute fracture. Soft tissues: Unremarkable. CT/CT abdomen pelvis w con* [id number] IMPRESSION: 1. Probable benign or functional left ovarian cyst measuring up to 3.4 cm. No further workup needed. 2. Benign right renal cyst measuring 8.7 mm. No further workup needed. 3. Small hiatal hernia 4. Normal appendix 5. Moderate stool present within the rectal vault. COMMENTS: Consistent with the [employer]'s Incidental Findings Committee white paper (J Am Doron Radiol 2018): Any incidental renal lesion less than 1 cm or classified as too small to characterize, or any incidental cystic renal lesion characterized as simple-appearing, is likely benign. No follow-up imaging is recommended for these lesions per consensus recommendations based on imaging criteria. Radiation Dose CTDIVOL = (mGy): DLP = 1586.21 (mGy-cm)
[2020-12-25] MEDS: iohexol 300 mg/mL 100 mL Btl IV (05:21)
[2020-12-25 06:47] LABS: Add Urine Microscopic? YES; Bilirubin Urine Neg (Negative); Blood Urine 2+ (Negative); Glucose Urine UA Norm (Normal); Ketones Urine Negative (Negative); Leukocyte Esterase Urine Negative (Negative); Nitrate Urine Negative (Negative); Protein Urine Neg (Negative); Specific Gravity, Urine 1.005 (1.005-1.030); Urine Appearance Clear (CLEAR); Urine Color Straw (Yellow); Urobilinogen Urine Norm (Negative); pH Urine 5 (5-7)
[2020-12-25 06:48] LABS: Add Urine Culture? No; Bacteria Urine TRACE /hpf; RBC Urine 0-4 /hpf (0-2); Squamous Epithelial Cell Urine 0-4 /hpf (0-5); WBC Urine 0-4 /hpf (0-5)
--- NOTE | 2020-12-25 06:48 | ED_ITS ---
HPI - General Adult General: Chief complaint: General Medical Stated complaint: Rectal pain, unable to urinate Time Seen by Provider: 12/25/20 03:43 History of Present Illness: HPI narrative: 40-year-old female who had vaginal hysterectomy little over a month ago. She also had some tooth procedures last week, was placed on medication, and has not been able to have a bowel movement since that time. She has taken laxatives at home without any relief. She began to not be able to urinate this evening. She has intense pain. When she tries to go, she says that there is tissue but pops out of her rectum and then transiently goes back in. She denies fever. She has vomited some Onset (ago): day(s) Location: buttocks Severity: moderate Relieving factors: cold therapy Associated symptoms: Reports nausea and vomiting; Deny chest pain, confusion, cough, diaphoresis, fevers/chills, headache(s) or seizures Review of Systems Const: Denies: diaphoresis Card: Denies: chest pain GI: Reports: nausea and vomiting Neuro: Denies: headache(s) or confusion PFSH ED PFSH: Medical History Aftercare following surgery of the genitourinary system Family History Father Heart disease Stroke Hypertension Grandmother Dementia maternal Stroke maternal Mother Uterine cancer Ovarian cancer Thyroid condition Hyperlipidemia Hypertension Breast cancer, Onset Age: 56 Colon cancer Denies family history of Diabetes Clotting disorder Anesthesia complication Bleeding disorder Social History (Updated 10/25/20 @ 11:11 by Jenae Crenshaw) Smoking and tobacco status: current every day smoker cigarettes Packs smoked per day: 0.5 Alcohol intake: current Alcohol intake frequency: holidays/special occasions only Alcohol type: hard liquor Other details last substance use: has tried to use marijuana in the past but it makes her sick Female Reproductive History: Date of last menstrual period: 04/15/20 Physical Exam Const: COMMON NORMALS: patient oriented x3 and alert GENERAL APPEARANCE: cooperative, anxious and ill appearing; not comfortable Resp: COMMON NORMALS: normal respiratory effort, No use of accessory muscles and clear to auscultation bilaterally AUSCULTATION: clear to auscultation bilaterally Cardio: COMMON NORMALS: regular rhythm and Peripheral pulses 2+ throughout RATE: tachycardic RHYTHM: regular rhythm PERIPHERAL PULSES: Peripheral pulses 2+ throughout GI: COMMON NORMALS: Soft to palpation INSPECTION: Yes abdominal distension (mild) AUSCULTATION: Yes Hypoactive bowel sounds present PALPATION: Yes Soft to palpation and Yes Tenderness to palpation present (GI) (diffuse) RE CTAL EXAM: visual inspection normal and No Rectal prolapse Neuro: COMMON NORMALS: patient oriented x3 SENSORIUM/ORIENTATION: Yes alert Course Vital Signs: Vital signs: Vital Signs Temperature 97.4 F L 12/25/20 03:06 Pulse Rate 97 12/25/20 03:06 Respiratory Rate 24 H 12/25/20 03:06 Blood Pressure 123/77 12/25/20 03:06 Pulse Oximetry 96 12/25/20 03:06 MDM - General Adult MDM Narrative: Medical decision making narrative: 40-year-old female complains of constipation symptoms concerning for rectal prolapse. Rectal prolapse is reducible. She is not having on exam. No sign of incarceration of the area. Her hemoglobin is 15.6. Her white blood cell count is 20.2. Because of this, CT was ordered and reveals an ovarian cyst on the left. Her appendix is normal. She has moderate stool present within the rectal vault. She has since had a bowel movement. She is also been given a mineral oil enema and a laxative orally here. She will go home to continue relief of constipation. Lab Data: Labs: Lab Results 12/25/20 12/25/20 12/25/20 04:15 04:15 06:10 WBC 20.2 10^3/uL H 10 ^3/uL (4.0-10.0) RBC 5.27 10^6/uL 10^6 /uL (4.1-5.3) Hgb 15.6 g/dL H g/dL (11.5-15.3) Hct 47.7 % H % (37.0-47.0) MCV 90.5 fl fl (81-99) MCH 29.6 pg pg (28.0-34.0) MCHC 32.7 g/dL g/dL (30.0-36.0) RDW 14.0 % % (12.1-15.1) Plt Count 352 10^3/cmm 10^3 /cmm (130-400) MPV 10.4 fL fL (7.4-10.4) Neut % (Auto) 77.3 % % Lymph % (Auto) 14.1 % % [place] % (Auto) 6.2 % % Eos % (Auto) 1.4 % % Baso % (Auto) 0.5 % % Neut # (Auto) 15.59 10^3/uL H 1 0^3/uL (1.8-7.7) Lymph # (Auto) 2.9 10^3/uL 10^3/ uL (0.8-4.8) [place] # (Auto) 1.3 10^3/uL H 10^ 3/uL (0.2-0.9) Eos # (Auto) 0.3 10^3/uL 10^3/ uL (0.0-0.8) Baso # (Auto) 0.1 10^3/uL 10^3/ uL (0.0-0.1) Nucleated RBC % (a uto) 0 % % Nucleated RBCs # 0.0 /100WBC /100W BC Sodium 137 mmol/L mmol/L (136-145) Potassium 3.9 mmol/L mmol/L (3.5-5.1) Chloride 104 mmol/L mmol/L (98-107) Carbon Dioxide 19 mmol/L L mmol/ L (22-29) Anion Gap 17.9 (5-19) BUN 9 mg/dL mg/dL (6-20) Creatinine 0.6 mg/dL mg/dL (0.5-0.9) GFR Calculation 109.6 mL/min mL/m in (90-130) Glucose 99 mg/dL mg/dL (65-115) Calculated Osmolal ity 283 mOsm/kg L mOs m/kg (285-295) Calcium 9.5 mg/dL mg/dL (8.5-10.5) Total Bilirubin 0.2 mg/dL mg/dL (0.15-1.2) AST 16 U/L U/L (0-32) ALT 16 U/L U/L (0-33) Alkaline Phosphata se 77 IU/L IU/L (35-105) C-Reactive Protein 6.8 mg/L H mg/L (0.0-4.9) Total Protein 7.5 g/dL g/dL (6.6-8.7) Albumin 4.2 g/dL g/dL (3.5-5.2) Globulin 3.3 g/dL g/dL (1.3-4.6) Lipase 18 U/L U/L (13-60) Urine Color Straw (Yellow) Urine Appearance Clear (CLEAR) Urine pH 5 (5-7) Ur Specific Gravit y 1.005 (1.005-1.030) Urine Protein Neg (Negative) Urine Glucose (UA) Norm (Normal) Urine Ketones Negative (Negative) Urine Blood 2+ H (Negative) Urine Nitrate Negative (Negative) Urine Bilirubin Neg (Negative) Urine Urobilinogen Norm mg/dL mg/dL (Negative) Ur Leukocyte Celi ase Negative (Negative) Urine RBC 0-4 /hpf H /hpf (0-2) Urine WBC 0-4 /hpf H /hpf (0-5) Ur Squamous Epith Cells 0-4 /hpf H /hpf (0-5) Amorphous Sediment Not Reportable Urine Bacteria Trace /hpf /hpf (NONE) Discharge Plan Discharge Patient Disposition: Home Clinical Impression: Incomplete rectal prolapse Constipation Qualifiers: Constipation type: drug induced constipation Qualified Code(s): K59.03 - Drug induced constipation Condition: Stable Prescriptions: No Action tramadol 50 mg tablet 50 mg PO Q8H PRN (Reason: pain) Qty: 20 RF: 0 ibuprofen 800 mg tablet 800 mg PO TID PRN (Reason: pain) Qty: 60 RF: 0 acetaminophen 325 mg capsule 325 mg PO Q4H PRN (Reason: fever or pain) Qty: 60 RF: 0 Discharge Orders: Discharge ED (Routine); Ordered 12/25/20 Ordered By: Fredy Costello Discharge Diet: Advance as tolerated and Clear Liquid Discharge Activity: Increase activity as tolerated Patient Instructions: Constipation (ED), Rectal Prolapse (ED) Activity Restrictions/Additional Instructions: Continue to take [id number] stool softeners even though you have had a bowel movement. Take them until stool is significantly soft, given the history of rectal prolapse. Prolapse can heal if the stools stay soft, and the intra- abdominal pressure generated during bowel movements stays low. Return for fever greater than 100, vomiting liquids or medications, worsening pain, any other concerning symptoms. Coding Level of Care Code ED Child Care Associate for Chg Fwd Exam Expanded Problem Focused
[2020-12-25] MEDS: magnesium hydroxide 30 mL UDC PO (07:21)
[2020-12-25] MEDS: mineral oil 30 mL UDC PO (07:21)
[2020-12-25] MEDS: lactulose oral liq 20 gm/30 mL UDC PO (07:21)
[2020-12-25 07:23] VITALS: PULSE 88; RESP 24; TEMP 36.3; O2SAT 96
== END 2020-12-25 07:24 | disposition home or self-care (01) ==
PROVIDERS: Emergency Provider Emergency Medicine
DX: K59.03 Drug induced constipation (principal); K62.3 Rectal prolapse; F17.210 Nicotine dependence, cigarettes, uncomplicated
CPT/HCPCS: 74018; 74177; 80053; 81001; 83690; 85025; 86140; 96361; 96374; 96375; 99283; J1170; J2765; J7030; Q9967